=== PATIENT | male | born 1995 | race Caucasian/White ===

== ENCOUNTER 2019-07-27 17:36 | Emergency (ER) | payer OTHER, SELFPAY ==
[2019-07-27 18:14] VITALS: BP 142/109; PULSE 112; RESP 18; TEMP 36.6; O2SAT 98
--- NOTE | 2019-07-27 18:50 | ED.ABDPAIN ---
HPI - Abdominal Pain General Chief Complaint: Skin/Abscess/Foreign Body Stated Complaint: tailbone pain, redness Time Seen by Provider: 07/27/19 18:04 Source: patient Mode of arrival: ambulatory Limitations: no limitations History of Present Illness HPI narrative: Patient is a 24-year-old male who presents with red tender area to the buttock that is been present for the last day pain is a mild aching pain worse with sitting also noting some redness patient denies any fever chills nausea vomiting presents per private vehicle in no distress. Related Data Home Medications Medication Instructions Recorded Confirmed insulin lispro [Humalog U-100 07/27/19 Insulin] Allergies Allergy/AdvReac Type Severity Reaction Status Date / Time No Known Allergies Allergy Verified 07/27/19 18:19 Review of Systems Review of Systems: Narrative: CONSTITUTIONAL: Denies fever, chills, or sweats. GASTROINTESTINAL: Denies nausea, vomiting SKIN: Positive for buttock wound MUSCULOSKELETAL: Denies back pain, joint pain PMFSH Past Medical History Medical History Diabetes type I STD (male) Surgical History Surgical History No significant past surgical history Social History Social History Smoking status: Never smoker Alcohol intake: current Gender identity (if verbalized by the patient): Male Exam Narrative: Exam Narrative: GENERAL: Well-appearing, well-nourished, and in no acute distress. HEAD: Normocephalic, atraumatic. EYES: PERRLA and EOMI. ENT: Nares clear, no rhinorrhea or epistaxis. Mucous membranes moist. EXTREMITIES: Normal range of motion. No edema. SKIN: Patient with red tender swollen area in the gluteal cleft consistent with pilonidal abscess NEURO: No focal deficits. Alert and oriented x3. PSYCH: Normal mood and affect. Procedures Abscess I/D buttock: Date of Incision: 07/27/19 Time of Incision: 18:55 Technique: incised with #11 blade Irrigation: No Packing used?: iodoform I&D Results: Pus and Blood Course Course Emergency Course: Patient in the room in no distress aware of case findings treatment plan and diagnosis Vital Signs Vital signs: Vital Signs Temperature 98 F 07/27/19 18:14 Pulse Rate 112 H 07/27/19 18:14 Respiratory Rate 18 07/27/19 18:14 Blood Pressure 142/109 H 07/27/19 18:14 Pulse Oximetry 98 07/27/19 18:14 Temperature 98 F 07/27/19 18:14 Pulse Rate 112 H 07/27/19 18:14 Respiratory Rate 18 07/27/19 18:14 Blood Pressure 142/109 H 07/27/19 18:14 Pulse Oximetry 98 07/27/19 18:14 MDM - Abdominal Pain MDM Narrative Medical decision making narrative: Patient in the room in no distress aware of case findings treatment plan and diagnosis agreeing to follow-up as directed Discharge Plan Discharge Clinical Impression: Abscess of skin or subcutaneous tissue Patient Disposition: Home, Self-Care Condition: Stable Instructions: Antibiotic Form, Abscess (ED) Additional Instructions: Follow up with primary care in the next 5-7 days for re-evaluation take antibiotics as directed. return if symptoms worsen or concerns, any increase in redness swelling pain or fever over 100.5 Clean wound with mild soapy water. Apply antibiotic ointment and clean dressing at least three times daily Prescriptions: New cephalexin [Keflex] 500 mg capsule 500 mg PO Q6H 7 Days Qty: 28 RF: 0 No Action Humalog U-100 Insulin 100 unit/mL cartridge RF: 0 Follow-up/Referrals: Anil,CHRISTIE Castro [Primary Care Provider] -
== END 2019-07-27 19:13 | disposition home or self-care (01) ==
PROVIDERS: Emergency Provider Emergency Medicine; PCP Physician Assistant
DX: L02.31 Cutaneous abscess of buttock (principal); E10.9 Type 1 diabetes mellitus without complications; Z79.4 Long term (current) use of insulin
CPT/HCPCS: 10061; 99283

== ENCOUNTER 2020-07-12 20:10 | Emergency (ER) | payer OTHER, SELFPAY ==
[2020-07-12 20:15] VITALS: BP 149/87; PULSE 106; RESP 20; TEMP 37; O2SAT 100
--- NOTE | 2020-07-12 20:30 | ED.GENADULT ---
HPI - General Adult General Chief complaint: Skin/Abscess/Foreign Body Stated complaint: bump below belt line Time Seen by Provider: 07/12/20 20:30 Source: patient Mode of arrival: ambulatory Limitations: no limitations History of Present Illness HPI narrative: Patient is a 25-year-old male who presents with red tender swollen area in the suprapubic region along the belt line for the last several days having had infections in this location before patient denies fever chills nausea vomiting patient notes his blood sugars have been well controlled and is a diabetic patient is followed by primary care presents in no distress has no other complaints Related Data Home Medications Medication Instructions Recorded Confirmed insulin lispro [Humalog U-100 07/27/19 Insulin] Allergies Allergy/AdvReac Type Severity Reaction Status Date / Time No Known Allergies Allergy Verified 07/12/20 20:17 Review of Systems Review of Systems: All systems reviewed & are unremarkable except as noted in HPI and below PMFSH Past Medical History Medical History Diabetes type I STD (male) Surgical History Surgical History No significant past surgical history Social History Social History Smoking status: Never smoker Alcohol intake: current Gender identity (if verbalized by the patient): Male Exam Narrative: Exam Narrative: GENERAL: Well-appearing, well-nourished, and in no acute distress. HEAD: Normocephalic, atraumatic. EYES: PERRLA and EOMI. ENT: Nares clear, no rhinorrhea or epistaxis. Mucous membranes moist. EXTREMITIES: Normal range of motion. No edema. SKIN: Warm, dry, no rash. 2 cm red tender swollen fluctuant lesion mid suprapubic region NEURO: No focal deficits. Alert and oriented x3. Cranial nerves II through XII grossly intact PSYCH: Normal mood and affect. Course Course Emergency Course: Patient with I&D in the emergency department had wound culture obtained will be discharged home with follow-up with primary care given reasons to return Vital Signs Vital signs: Vital Signs Temperature 98.6 F 07/12/20 20:15 Pulse Rate 106 H 07/12/20 20:15 Respiratory Rate 07/12/20 20:15 Blood Pressure 149/87 H 07/12/20 20:15 Pulse Oximetry 100 07/12/20 20:15 Temperature 98.6 F 07/12/20 20:15 Pulse Rate 106 H 07/12/20 20:15 Respiratory Rate 20 07/12/20 20:15 Blood Pressure 149/87 H 07/12/20 20:15 Pulse Oximetry 100 07/12/20 20:15 Procedures Abscess I/D abdomen: Date of Incision: 07/12/20 Time of Incision: 20:32 Technique: incised with #11 blade Irrigation: No Packing used?: iodoform I&D Results: Pus and Blood Complications: pain Medical Decision Making MDM Narrative Medical decision making narrative: Patient had I&D of abscess will be discharged home with outpatient follow-up Vital Signs Vital Signs: Vital Signs Temperature 98.6 F 07/12/20 20:15 Pulse Rate 106 H 07/12/20 20:15 Respiratory Rate 20 07/12/20 20:15 Blood Pressure 149/87 H 07/12/20 20:15 Pulse Oximetry 100 07/12/20 20:15 Temperature 98.6 F 07/12/20 20:15 Pulse Rate 106 H 07/12/20 20:15 Respiratory Rate 20 07/12/20 20:15 Blood Pressure 149/87 H 07/12/20 20:15 Pulse Oximetry 100 07/12/20 20:15 Discharge Plan Discharge Clinical Impression: Abscess of skin or subcutaneous tissue Patient Disposition: Home, Self-Care Condition: Stable Instructions: Antibiotic Form, Abscess (ED) Additional Instructions: Follow up with primary care in the next 2-3 days for re-evaluation and packing removal if placed take antibiotics as directed. return if symptoms worsen or concerns, any increase in redness swelling pain or fever over 100.5 If packing was placed it must
== END 2020-07-12 20:40 | disposition home or self-care (01) ==
LOC: ANHED 20:44
PROVIDERS: Emergency Provider Emergency Medicine; PCP Physician Assistant
DX: L02.211 Cutaneous abscess of abdominal wall (principal); E10.9 Type 1 diabetes mellitus without complications; Z79.4 Long term (current) use of insulin
CPT/HCPCS: 10061; 87070; 87075; 87205; 99283

== ENCOUNTER 2021-04-08 17:24 | Inpatient (IN) | payer OTHER, SELFPAY ==
--- NOTE | ~2021-04-08 | NM_ITS ---
EXAM: NM gastric emptying study DATE: 04/11/2021 12:26 INDICATION: Shortness of breath. Diabetes mellitus. TECHNIQUE: A gastric emptying study was performed using the methodology of Yessica HERNANDEZ, et al. J Nucl Med 2007; 48:568-572. The patient was given a meal consisting of 2 scrambled eggs labeled with 0.972 mCi Tc-99m sulfur colloid, 2 slices of toast, two packages of jam, and approximately 120 mL of water . Simultaneous anterior and posterior 1-min images of the abdomen were obtained with the patient supi ne at multiple time points over a total period of 4 hours. The geometric mean of anterior and posteri or views was determined, and the percentage retention was calculated for each time point. COMPARISON: None. FINDINGS: Gastric retention of the radiotracer-labeled meal was 83%, 77%, and 39% at the 1-hour, 2-h our, and 4-hour time points, respectively. With this technique, apparent rapid gastric emptying is calderón ggested by <30% gastric retention at 1 hour. Delayed gastric emptying is defined by gastric retention of >90% at 1 hour, >60% retention at 2 hours, or >10% retention at 4 hours. IMPRESSION: 1. Delayed gastric emptying. Reviewed, dictated and finalized at location A. NG MACHINE REPAIRER
--- NOTE | ~2021-04-08 | XR_ITS ---
EXAMINATION: XR chest 1V portable DATE: 04/08/2021 17:59 INDICATION: Shortness of breath TECHNIQUE: frontal view of the chest was obtained. COMPARISON: Chest radiograph dated 02/04/16 FINDINGS: The lungs remain clear with no focal airspace opacities, pulmonary edema, pleural effusion or pneumot horax. The cardiomediastinal silhouette is normal. Visualized bones and soft tissues are unremarkable . IMPRESSION: 1. No acute cardiopulmonary disease. Reviewed, dictated and finalized at location A. E MAKER
[2021-04-08 17:32] VITALS: BP 135/89; PULSE 130; RESP 20; TEMP 36.6; O2SAT 99
[2021-04-08 17:41] VITALS: BP 135/89; PULSE 130; RESP 19; TEMP 36.6
--- NOTE | 2021-04-08 17:51 | ECG_ITS ---
Measurements Intervals [place] Rate: 128 P: 70 OK: 146 QRS: 60 QRSD: 88 T: 53 QT: 296 QTc: 433 Interpretive Statements SINUS TACHYCARDIA PEAKED T WAVES- CONSIDER HYPERKALEMIA OR ISCHEMIA ABNORMAL ECG Electronically Signed On 04-08-2021 20:34:29 LIME PLANT OPERATOR by aPul Villegas D.O.
--- NOTE | 2021-04-08 18:08 | ED.GENADULT ---
HPI - General Adult General Chief complaint: Weakness Stated complaint: WEAK, SOB, CP, N/V Time Seen by Provider: 04/08/21 17:29 Source: patient History of Present Illness HPI narrative: Patient is a 26 y/o male complaining of moderate generalized weakness starting today. There is no known alleviating or exacerbating factor. He also vomited 3 times. He has SOB. He has no fever or abdominal pain. Related Data Home Medications Medication Instructions Recorded Confirmed insulin lispro [Humalog U-100 07/27/19 Insulin] Allergies Allergy/AdvReac Type Severity Reaction Status Date / Time No Known Allergies Allergy Verified 07/12/20 20:17 Review of Systems Constitutional: Constitutional: Denies chills, Denies fever(s), Denies headache(s) and Reports weakness Eyes: Eyes: Denies blurry vision ENT: Denies headache(s) and Denies neck pain Cardiovascular: Cardiovascular: Denies chest pain and Reports dyspnea Respiratory: Respiratory: Denies cough and Reports dyspnea Gastrointestinal: Gastrointestinal: Denies abdominal pain, Denies diarrhea, Reports nausea and Reports vomiting Genitourinary: Genitourinary: Denies hematuria and Denies dysuria Musculoskeletal: Musculoskeletal: Denies back pain and Denies neck pain Neurologic: Denies headache(s) and Denies weakness PMFSH Past Medical History Medical History Diabetes type I STD (male) Surgical History Surgical History No significant past surgical history Social History Social History Smoking status: Never smoker Alcohol intake: current Gender identity (if verbalized by the patient): Male Exam Const: General: well developed and ill appearing Orientation/consciousness: oriented to person, oriented to place, oriented to time and patient oriented x3 HENMT: Head: normocephalic Ears: external ears normal General nose exam: Normal external nose present Eyes: General: appearance normal, both eyes and all related structures Conjunctivae: conjunctivae normal Neck: Neck: normal visual inspection and full ROM Chest: Chest palpation & inspection: normal inspection of the chest and no tenderness Resp: Effort & Inspection: normal respiratory effort Auscultation: clear to auscultation bilaterally Cardio: Rate: tachycardic Rhythm: regular rhythm GI: GI Palp: No abdominal tenderness and Yes Soft to palpation Skin: General skin exam: normal color and turgor normal Neuro: General: oriented to person, oriented to place, oriented to time and patient oriented x3 Cognition (Neuro): normal cognition Extrem: General: normal to inspection, full ROM and no pedal edema Psych: Appearance: grossly normal Mental Status: mental status grossly normal Affect: normal affect Course Consultations Consultation #1: Discussed with CARL Butler, who agrees to admit. Date: 04/08/21 Time: 19:14 Consultation #2: Discussed with Dr. Martinez, who agrees to accept the patient to ICU and will consult. Date: 04/08/21 Time: 19:18 Vital Signs Vital signs: Vital Signs Temperature 36.6 C 04/08/21 17:32 Pulse Rate 130 H 04/08/21 17:32 Respiratory Rate 20 04/08/21 17:32 Blood Pressure 135/89 04/08/21 17:32 Pulse Oximetry 99 04/08/21 17:32 Temperature 36.6 C 04/08/21 17:41 Pulse Rate 131 H 04/08/21 20:06 Respiratory Rate 22 H 04/08/21 20:06 Blood Pressure 158/79 H 04/08/21 20:06 Pulse Oximetry 97 04/08/21 20:06 Medical Decision Making Vital Signs Vital Signs: Vital Signs Temperature 36.6 C 04/08/21 17:32 Pulse Rate 130 H 04/08/21 17:32 Respiratory Rate 20 04/08/21 17:32 Blood Pressure 135/89 04/08/21 17:32 Pulse Oximetry 99 04/08/21 17:32 Temperature 36.6 C 04/08/21 17:41 Pulse Rate 131 H 04/08/21 20:06 Respiratory Rate 22 H 04/08/21 20:06 Blood Pressure 1
[2021-04-08 18:11] LABS: Alveolar/Arterial O2 Gradient 57.3 mmHg; Base Excess ABG -20.8 mEq/l (+/-2.0); Fractional Inspired Oxygen 28 %; HCO3 ABG 5.2 mEq/l (22.0-26.0); Oxygen Content ABG 24.5 %vol (16.0-22.0); Oxygen Saturation ABG 97.6 % (95.0-100.0); Oxyhemoglobin 96.8 % THb (90.0-100.0); PO2 ABG 124.4 mmHg (80.0-100.0); PO2 FiO2 Ratio Arterial Blood 4.44 %; Total Hemoglobin 17.9 g/dL (12.0-18.0); pH ABG 7.155 (7.350-7.450)
[2021-04-08 18:12] LABS: Device NASAL CANNULA; Modified Allen's Test Pass; PCO2 ABG 15.2 mmHg (35.0-45.0); Site Drawn LEFT RADIAL
[2021-04-08 18:32] LABS: Glucose Point of Care 392 mg/dl (65-105)
[2021-04-08 18:37] LABS: Basophils Absolute Auto 0.1 K/mm3 (0.0-0.1); Basophils Percent Auto 0.5 % (0.2-1.2); Hematocrit 54.2 % (42.0-52.0); Hemoglobin 17.8 g/dL (14.0-18.0); Immature Granulocyte Absolute 0.64 K/mm3 (0.00-0.031); Immature Granulocyte Percent A 2.9 % (0-0.5); Lymphocytes Percent Auto 6.4 % (18.3-44.2); Mean Corpuscular HGB Conc 32.8 g/dl (32-36); Mean Corpuscular Hemoglobin 29.9 pg (26-34); Mean Corpuscular Volume 90.9 fl (80-100); Mean Platelet Volume 9.7 fl (7.4-10.4); Monocytes Absolute Auto 1.2 K/mm3 (0.1-0.6); Monocytes Percent Auto 5.6 % (2.6-8.5); Neutrophils Absolute Auto 18.7 K/mm3 (1.3-6.7); Neutrophils Percent Auto 84.6 % (45.5-73.1); Platelet Count Result 503 k/mm3 (150-375); Red Blood Count 5.96 M/mm3 (4.6-6.20); Red Cell Distribution Width 13.4 % (11.5-14.5)
[2021-04-08] MEDS: SODIUM CHLORIDE 0.9% IV 1,000 ML 999 ML IV CONT (18:47)
[2021-04-08 18:55] LABS: Magnesium 2.1 mg/dL (1.6-2.3); Phosphorus 5.3 mg/dL (2.5-4.5)
[2021-04-08 18:57] LABS: Alanine Aminotransferase 43 U/L (4-50); Albumin Level 5.2 g/dL (3.5-5.1); Alkaline Phosphatase 137 U/L (38-126); Aspartate Amino Transferase 20 U/L (17-59); Bilirubin,Total 0.6 mg/dL (0.2-1.3); Blood Urea Nitrogen 13 mg/dL (9-20); Calcium 10.3 mg/dL (8.4-10.2); Carbon Dioxide < 5 mmol/L (22-30); Chloride 106 mmol/L (98-107); Estimated CRCL calculation 116 ml/min; Estimated Glomerular Filt Rate > 60; Glucose 372 mg/dL (65-110); Potassium 6.3 mmol/L (3.4-5.0); Sodium 139 mmol/L (137-145)
[2021-04-08 19:01] LABS: Troponin I < 0.012 ng/mL (0.000-0.034)
--- NOTE | 2021-04-08 19:30 | PM.IMHP ---
H&P: HPI History of Present Illness Date/Time: 04/08/21 19:30 Chief Complaint: Nausea, vomiting, and weakness. Narrative: This is a 21-year-old male with type 1 diabetes mellitus and history of diabetic ketoacidosis who presented to the emergency department earlier today via EMS for evaluation of nausea, vomiting, and weakness. He did not feel well shortly after waking this morning with mild epigastric discomfort, nausea, and multiple episodes of emesis. Since that time he has gotten extremely weak and is now feeling short of breath. In the emergency department he was found to be in diabetic ketoacidosis and he is being admitted in this setting. With further questioning he does mention that his glucose has been running quite high today however he cannot further qualify. He states compliance with his home medications. He has not had fever, chills, or sweats. No recent cold or flu symptoms. He denies sick contacts. He also denies hematemesis and melena. No dysuria or diarrhea. No open wounds. Of note he was admitted to [facility] a couple of weeks ago for nearly 7 days for DKA. Review of Systems Review of Systems: Twelve systems were reviewed. He denies syncope and near-syncope. No sinus congestion, rhinorrhea, otalgia, or odynophagia. He denies chest pain and pleuritic pain. No cough. He has noticed a decrease in his urine output today. Denies nephropathy, retinopathy, and neuropathy. Except as documented, all other systems were reviewed and are negative. [facility] Past Medical History Medical History (Updated 04/08/21 @ 23:21 by Carrie Reyes PA-C) Type 1 diabetes mellitus Surgical History Surgical History No significant past surgical history Family History Family History (Updated 04/08/21 @ 23:17 by Carrie Reyes PA-C) Other Diabetes mellitus Hypertension Social History Social History (Updated 04/08/21 @ 23:17 by Carrie Reyes PA-C) Social History: Surrogate decision maker: Ophelia Nash, mother. Code status: Full code. Smoking status: Never smoker Alcohol intake: current Alcohol use details: Drinks alcohol socially in moderation. Substance use: never Additional living arrangements comments: The patient lives in [place] with roommates. Additional occupation/education comments: Works for [employer]. Meds Home Medications and Allergies Home Medications Medication Instructions Recorded Confirmed Type cephalexin [Keflex] 500 mg PO Q6H 7 Days #28 cap 07/27/19 Rx insulin lispro [Humalog U-100 07/27/19 History Insulin] chlorhexidine gluconate [Hibiclens] 1 applic TOPICAL TID #3800 ml 07/12/20 Rx doxycycline hyclate 100 mg PO BID 10 Days #20 cap 07/12/20 Rx mupirocin 1 applic TOPICAL BID #15 g 07/12/20 Rx Allergies Allergy/AdvReac Type Severity Reaction Status Date / Time No Known Allergies Allergy Verified 07/12/20 20:17 Vital Signs Vital Signs - 24 hr 04/08/21 17:32 04/08/21 17:41 04/08/21 20:06 Temperature 98 F 98 F Pulse Rate 130 H 130 H 131 H Respiratory Rate 20 19 22 H Blood Pressure 135/89 135/89 158/79 H Pulse Oximetry 99 97 Exam Narrative: General: Ill-appearing male in the semi-Garcia position in bed. He vomited several times while I was in the room. Weight: 97.52 kg. BMI: 30.8. HEENT: PERRL, EOMI. Sclerae anicteric. Oral mucosa is dry. Oropharynx is clear. Respiratory: Tachypneic and speaking in 4 to 5 word sentences. Lungs are clear to auscultation. Cardiovascular: Tachycardic with S1-S2. Gastrointestinal: Abdomen is soft and nondistended with positive bowel sounds. He is somewhat tender to palpation epigastric region but not significantly so. No voluntary guarding or rebound tenderness. There is some bruising in the right lower quadrant presumably from insulin pump. Skin: Cool and moist. Capillary refill approximately 3 seconds. Extremities: No cyanosis, clu
--- NOTE | 2021-04-08 19:32 | PC.NURSE ---
Took over pt care at this time. Report from ECTOR Barba
[2021-04-08 20:04] LABS: Glucose Point of Care 348 mg/dl (65-105)
[2021-04-08 20:06] VITALS: BP 158/79; PULSE 131; RESP 22; O2SAT 97
[2021-04-08 21:12] LABS: Glucose Point of Care 347 mg/dl (65-105)
[2021-04-08 21:46] LABS: Troponin I < 0.012 ng/mL (0.000-0.034)
[2021-04-08] MEDS: INSULIN HUMAN REGULAR (*BKC) 100 UNITS in SODIUM CHLORIDE 0.9% IV 99 ML 5.7 UNITS IV CONT (22:20)
[2021-04-08] MEDS: ONDANSETRON INJ 4 MG/2 ML VIAL (22:45)
[2021-04-08 23:03] LABS: Glucose Point of Care 310 mg/dl (65-105)
[2021-04-08 23:30] VITALS: BP 148/84; PULSE 128
[2021-04-08 23:37] LABS: Glucose Point of Care 301 mg/dl (65-105)
[2021-04-09] VITALS (11 sets, daily range): BP systolic 125–146; BP diastolic 64–86; PULSE 114–130; RESP 16–23; TEMP 36.7–37.1; O2SAT 98–100; BMI 30.7; BMI 28.9
[2021-04-09] MEDS: SODIUM CHLORIDE 0.9% IV 1,000 ML 999 ML IV CONT ×2 (00:02→01:00)
[2021-04-09 00:10] LABS: Hemoglobin A1C 10.7 % (<5.7)
--- NOTE | 2021-04-09 00:11 | ADMGEN ---
This patient, César Nash, was admitted to Intensive Care Unit-1. Patient/family oriented to hospital policies and general routines including ID bracelet, bed and alarms, visiting hours, pain management, procedures, bathroom and other care routines, personal items, smoking policy, room service/diet, and visiting hours. Information on how to activate the Rapid Response Team has been discussed. Patient/Family are encouraged to report perceived risks to care and to ask questions if they do not understand what they are told or what they should do.
[2021-04-09 00:16] LABS: Blood Urea Nitrogen 12 mg/dL (9-20); Carbon Dioxide < 5 mmol/L (22-30); Chloride 110 mmol/L (98-107); Estimated CRCL calculation 161 ml/min; Estimated Glomerular Filt Rate > 60; Glucose 314 mg/dL (65-110); Magnesium 2.2 mg/dL (1.6-2.3); Phosphorus 3.3 mg/dL (2.5-4.5); Potassium 4.9 mmol/L (3.4-5.0); Sodium 141 mmol/L (137-145)
[2021-04-09 00:17] LABS: Blood Urea Nitrogen 12 mg/dL (9-20); Calcium 10.2 mg/dL (8.4-10.2); Carbon Dioxide < 5 mmol/L (22-30); Chloride 111 mmol/L (98-107); Estimated CRCL calculation 142 ml/min; Estimated Glomerular Filt Rate > 60; Glucose 316 mg/dL (65-110); Sodium 142 mmol/L (137-145)
[2021-04-09 00:27] LABS: Troponin I < 0.012 ng/mL (0.000-0.034)
[2021-04-09 01:16] LABS: Glucose Point of Care 228 mg/dl (65-105)
[2021-04-09] MEDS: KCL 20 MEQ/D5/0.45% SOD CHL 1,000 ML 150 ML IV CONT ×2 (02:02→08:49)
[2021-04-09 02:08] LABS: Glucose Point of Care 201 mg/dl (65-105)
[2021-04-09 03:11] LABS: Glucose Point of Care 199 mg/dl (65-105)
[2021-04-09 04:15] LABS: Glucose Point of Care 212 mg/dl (65-105)
[2021-04-09 05:37] LABS: Anion Gap 16 mmol/L (8-16); Blood Urea Nitrogen 11 mg/dL (9-20); Calcium 9.5 mg/dL (8.4-10.2); Carbon Dioxide 12 mmol/L (22-30); Chloride 114 mmol/L (98-107); Estimated CRCL calculation 185 ml/min; Estimated Glomerular Filt Rate > 60; Glucose 230 mg/dL (65-110); Potassium 4.2 mmol/L (3.4-5.0); Sodium 142 mmol/L (137-145)
[2021-04-09 05:38] LABS: Glucose Point of Care 216 mg/dl (65-105)
[2021-04-09 06:04] LABS: Add Urine Microscopic? YES; Appearance Urine Clear (Clear); Bilirubin Urine Negative (Negative); Blood Urine Negative (Negative); Color Urine Yellow (Yellow); Glucose Urine UA 3+ mg/dL (Negative); Ketones Urine 2+ mg/dL (Negative); Leukocyte Esterase Ur Negative LEU/UL (NEGATIVE); Mucus Urine Rare /lpf; Nitrate Urine Negative (Negative); Protein Urine 2+ mg/dL (Negative); RBC Urine 0-2 /hpf (0-2); Specific Grav Ur 1.018 (1.001-1.035); Squamous Epithelial Cell Urine Rare /hpf (Few); Urobilinogen Urine Negative mg/dL (<2.0); WBC Urine 0-3 /hpf (0-3)
[2021-04-09 06:38] LABS: Glucose Point of Care 184 mg/dl (65-105)
[2021-04-09] MEDS: PANTOPRAZOLE SODIUM IV 40 MG VIAL IV PUSH ×2 (07:50→20:25)
[2021-04-09] MEDS: ENOXAPARIN 40 MG/0.4 ML SYRINGE SUB-Q (07:50)
[2021-04-09] MEDS: INSULIN HUMAN REGULAR (*BKC) 100 UNITS in SODIUM CHLORIDE 0.9% IV 99 ML 8.2 UNITS IV CONT (07:54)
[2021-04-09 07:57] LABS: Glucose Point of Care 151 mg/dl (65-105)
[2021-04-09 08:32] LABS: Anion Gap 12 mmol/L (8-16); Blood Urea Nitrogen 11 mg/dL (9-20); Calcium 9.5 mg/dL (8.4-10.2); Carbon Dioxide 14 mmol/L (22-30); Chloride 112 mmol/L (98-107); Estimated CRCL calculation 193 ml/min; Estimated Glomerular Filt Rate > 60; Glucose 150 mg/dL (65-110); Potassium 3.9 mmol/L (3.4-5.0); Sodium 138 mmol/L (137-145)
[2021-04-09 08:48] LABS: Basophils Percent Auto 0.2 % (0.2-1.2); Eosinophils Percent Auto 0.1 % (0-4.4); Hematocrit 45.6 % (42.0-52.0); Hemoglobin 15.4 g/dL (14.0-18.0); Immature Granulocyte Absolute 0.22 K/mm3 (0.00-0.031); Immature Granulocyte Percent A 1.4 % (0-0.5); Lymphocytes Absolute Auto 2.58 K/mm3 (0.9-3.2); Mean Corpuscular HGB Conc 33.8 g/dl (32-36); Mean Corpuscular Volume 88.7 fl (80-100); Mean Platelet Volume 9.4 fl (7.4-10.4); Monocytes Absolute Auto 1.9 K/mm3 (0.1-0.6); Monocytes Percent Auto 11.9 % (2.6-8.5); Neutrophils Absolute Auto 11.4 K/mm3 (1.3-6.7); Neutrophils Percent Auto 70.4 % (45.5-73.1); Platelet Count Result 395 k/mm3 (150-375); Red Blood Count 5.14 M/mm3 (4.6-6.20); Red Cell Distribution Width 13.4 % (11.5-14.5); White Blood Count 16.1 K/mm3 (4.5-10.0)
[2021-04-09 08:52] LABS: Glucose Point of Care 127 mg/dl (65-105)
--- NOTE | 2021-04-09 10:20 | PM.IMPN ---
Progress Note: A&P Assessment and Plan (1) Diabetic ketoacidosis associated with type 1 diabetes mellitus: Code(s): E10.10 - Type 1 diabetes mellitus with ketoacidosis without coma Status: Acute Assessment and Plan: With hyperglycemia (glucose 372), ketonemia (beta hydroxybutyrate 10.30), and metabolic acidosis with a pH of 7.155 and a pCO2 of 15.2 on ABG. Anion gap was unable to be calculated accurately but at least 28. He was admitted to the ICU on DKA protocol. Continue insulin drip and IV fluids per DKA protocol. Anion gap has closed now. Plan to transition to basal insulin and meal time bolus dosing. agricultural extension educator consult. Unclear on why he is back in DKA. Discussed with bun icer. (2) Type 1 diabetes mellitus: Code(s): E10.9 - Type 1 diabetes mellitus without complications Status: Acute Assessment and Plan: A1c 10.7. Plan is as detailed above. (3) Hyperkalemia: Code(s): E87.5 - Hyperkalemia Status: Acute Assessment and Plan: Potassium 6.3 on admission. Related to DKA and profound acidosis. EKG does show peaked T-waves. There have been no cardiac dysrhythmias noted and he has been in a sinus tachycardia since arrival. Potassium has normalized with aggressive hydration and insulin drip. Continue to monitor. (4) Dehydration: Code(s): E86.0 - Dehydration Status: Acute Assessment and Plan: He is being aggressively hydrated per DKA protocol. Still tachycardic despite closure of anion gap. Continue IV fluids since suspect patient is still fluid depleted. (5) Depression: Code(s): F32.A - Depression, unspecified Status: Acute Assessment and Plan: Normal mood but flat affect. Resume sertraline. Continue to monitor. (6) Leukocytosis: Code(s): D72.829 - Elevated white blood cell count, unspecified Status: Acute Assessment and Plan: WBC 22K on admission. No evidence of acute infectious process so suspect related to a stress response. CXR clear. UA negative for evidence of infection. Blood cultures pending. Abx held. Repeat WBC better. Follow. (7) DVT prophylaxis: Code(s): Z29.9 - Encounter for prophylactic measures, unspecified Status: Acute Assessment and Plan: Lovenox Subjective Date/time seen: 04/09/21 10:20 Interval history: 26yo male with DM Type I here for n/v and found to be in DKA. Patient was just discharged for DKA on 04/02 from a different hospital. He is not sure why he developed DKA again but feels that his original DKA episode did not completely resolve. Currently on insulin drip but gap closed. Slept okay last night. Checks glucose 4x/day at home. Pump working well at home. n/v resolved. Exam Narrative: AF 98.1 131/72 114 16 100% ra Gen - NARD Chest - CTA bilaterally, nml RR CV - tachycardic; Tele showing no acute dysrhythmias Abd - Soft, NT/ND, Positive BS Ext - No pedal edema. no skin breakdown on the feet. 2+ DP bilaterally Neuro - Alert and oriented. Nonfocal exam. Psych - Nml mood but flat affect Objective Data Vital Signs Vital Signs: Vital Signs - 24 hr 04/08/21 17:32 04/08/21 17:41 04/08/21 20:06 Temperature 98 F 98 F Pulse Rate 130 H 130 H 131 H Respiratory Rate 20 19 22 H Blood Pressure 135/89 135/89 158/79 H Pulse Oximetry 99 97 04/08/21 23:30 04/09/21 00:00 04/09/21 02:00 Temperature Pulse Rate 128 H 130 H 124 H Respiratory Rate 20 19 Blood Pressure 148/84 H 126/80 135/82 Pulse Oximetry 100 100 04/09/21 03:24 04/09/21 04:00 04/09/21 06:00 Temperature 98.3 F Pulse Rate 124 H 116 H 118 H Respiratory Rate 19 19 18 Blood Pressure 125/69 137/73 Pulse Oximetry 100 100 100 04/09/21 08:00 04/09/21 09:11 Temperature 98.1 F Pulse Rate 114 H Respiratory Rate 16 Blood Pressure 131/72 Pulse Oximetry 100 100 Intake/Output Intake/Output: Intake & Output 04/06/21 04/07/21
[2021-04-09] MEDS: INSULIN GLARGINE (*BKC) 100 UNITS/ML 30 UNITS SUB-Q (10:27)
[2021-04-09] MEDS: SODIUM CHLORIDE 0.45% 1,000 ML 75 ML IV CONT ×2 (10:28→20:29)
--- NOTE | 2021-04-09 10:28 | WPDCNINT ---
Assessment and Plan Assessment and plan (1) Diabetic ketoacidosis associated with type 1 diabetes mellitus: Code(s): E10.10 - Type 1 diabetes mellitus with ketoacidosis without coma Status: Acute Assessment and Plan: Patient was given IVF bolus and started on infusion. Patient currently on Insulin infusion and Q1H glucose monitoring Serial labs are being done I have reviewed lab this morning and his anion gap has closed. His symptoms have improved I will transition to SC insulin Start clear liquid diet and advance as tolerated Continue IV fluids but decrease rate. Will continue until patient starts taking oral diet He will be seen by museum educator his HbA1c is 10.7 which suggest either noncompliance or poor control (2) Leukocytosis: Code(s): D72.829 - Elevated white blood cell count, unspecified Status: Acute Assessment and Plan: Likely stress response from DKA and improving No symptoms or sign to suggest of infection His UA and chest x-ray were negative (3) Hyperkalemia: Code(s): E87.5 - Hyperkalemia Status: Acute Assessment and Plan: Likely secondary to acidosis Resolved now Renal function is normal Additional Plan DVT prophylaxis -SCDs Transfer out of ICU today Invoice Control Clerk Consult Note Consult date: 04/09/21 HPI: César Nash is a 26 year old male with past medical history of type 1 diabetes mellitus and admissions for DKA who presented yesterday with chief complaint of nausea vomiting and feeling sick. Patient told me that yesterday when he woke up he was feeling sick and was nauseous. As the day passed he became more symptomatic and had episodes of vomiting but no blood in it. He felt weak and tired. Hence he presented to ER. In ED patient was found to be in DKA and was given IV fluid bolus and started on IV fluid infusion along with IV insulin infusion. He was admitted to ICU for further evaluation management. Patient denied any abdominal pain or shortness of breath to me although he reported these complaints to admitting physician. All other systems were reviewed and were negative. This morning he states he is feeling better and his symptoms have resolved. Denies any for nausea vomiting at this time. He states he would like to try some food. Patient states compliance with his insulin and states he uses insulin pump with a basal rate of 1.6 units/hour and takes a sliding scale with his meals which in general is 3 units with breakfast and 6-7 units with lunch and dinner. Any malfunctioning of pump or noncompliance with diet. Review of Systems Review of Systems: All systems reviewed & are unremarkable except as noted in HPI and below (HPI) [facility] Past Medical History Medical History Type 1 diabetes mellitus Surgical History Surgical History No significant past surgical history Family History Family History Other Diabetes mellitus Hypertension Social History Social History Social History: Surrogate decision maker: Ophelia Nash, mother. Code status: Full code. Smoking status: Never smoker Alcohol intake: never Alcohol use details: Drinks alcohol socially in moderation. Substance use: never Additional living arrangements comments: The patient lives in [place] with roommates. Additional occupation/education comments: Works for [employer]. Spiritual care concerns: No Meds Home Medications and Allergies Home Medications Medication Instructions Recorded Confirmed Type insulin lispro [Humalog U-100 See Rx Instructions .ROUTE .COMPLEX 07/27/19 04/08/21 History Insulin] sertraline 25 mg PO HS 04/08/21 04/08/21 History Allergies Allergy/AdvReac Type Severity Reaction Status Date / Time No Known Aller
[2021-04-09 10:33] LABS: Glucose Point of Care 119 mg/dl (65-105)
[2021-04-09 11:37] LABS: Glucose Point of Care 89 mg/dl (65-105)
[2021-04-09 12:06] LABS: Anion Gap 11 mmol/L (8-16); Blood Urea Nitrogen 10 mg/dL (9-20); Calcium 9.6 mg/dL (8.4-10.2); Carbon Dioxide 17 mmol/L (22-30); Chloride 110 mmol/L (98-107); Estimated CRCL calculation 193 ml/min; Estimated Glomerular Filt Rate > 60; Glucose 96 mg/dL (65-110); Potassium 3.7 mmol/L (3.4-5.0); Sodium 138 mmol/L (137-145)
[2021-04-09 13:32] LABS: Total Triiodothyronine (T3) 1.01 NG/ML (0.97-1.69)
[2021-04-09] MEDS: INSULIN ASPART (*BKC) 100 UNITS/ML SUB-Q ×2 (16:54→20:33)
[2021-04-09 16:58] LABS: Glucose Point of Care 241 mg/dl (65-105)
[2021-04-09] MEDS: SERTRALINE HCL 25 MG TABLET PO (20:25)
[2021-04-09 20:31] LABS: Glucose Point of Care 246 mg/dl (65-105)
[2021-04-10] VITALS: BP 129/74; PULSE 113; RESP 20; TEMP 37; O2SAT 99
[2021-04-10 04:26] VITALS: BP 114/79; PULSE 113; RESP 18; TEMP 36.5; O2SAT 100
--- NOTE | 2021-04-10 04:28 | PC.NURSE ---
This patient, César Nash, was transferred to [325-2 ] on 04/10/21 at 0428. Personal belongings sent with patient. Report given to [ Michelle BARNEY]. Appropriate documentation sent with patient.
--- NOTE | 2021-04-10 04:58 | PC.NURSE ---
Recieved from ICU to [facility]-2,call light in place.Aox3
[2021-04-10 06:31] LABS: Hemoglobin 13.9 g/dL (14.0-18.0); Mean Corpuscular HGB Conc 33.9 g/dl (32-36); Mean Corpuscular Volume 88.4 fl (80-100); Mean Platelet Volume 9.7 fl (7.4-10.4); Platelet Count Result 333 k/mm3 (150-375); Red Blood Count 4.64 M/mm3 (4.6-6.20); Red Cell Distribution Width 13.6 % (11.5-14.5); White Blood Count 10.2 K/mm3 (4.5-10.0)
[2021-04-10 06:36] LABS: Glucose Point of Care 308 mg/dl (65-105)
[2021-04-10] MEDS: INSULIN ASPART (*BKC) 100 UNITS/ML SUB-Q ×6 (06:40→21:46)
[2021-04-10 06:49] LABS: Albumin Level 3.5 g/dL (3.5-5.1); Anion Gap 19 mmol/L (8-16); Blood Urea Nitrogen 8 mg/dL (9-20); Calcium 9.2 mg/dL (8.4-10.2); Carbon Dioxide 10 mmol/L (22-30); Chloride 106 mmol/L (98-107); Estimated CRCL calculation 193 ml/min; Estimated Glomerular Filt Rate > 60; Glucose 305 mg/dL (65-110); Magnesium 1.6 mg/dL (1.6-2.3); Phosphorus 2.3 mg/dL (2.5-4.5); Potassium 3.9 mmol/L (3.4-5.0); Sodium 135 mmol/L (137-145)
[2021-04-10 08:21] LABS: Glucose Point of Care 259 mg/dl (65-105)
[2021-04-10 08:35] LABS: Glucose Point of Care 275 mg/dl (65-105)
[2021-04-10] MEDS: INSULIN GLARGINE (*BKC) 100 UNITS/ML 30 UNITS SUB-Q (09:28)
[2021-04-10 09:30] VITALS: BMI 28.9
[2021-04-10] MEDS: ENOXAPARIN 40 MG/0.4 ML SYRINGE SUB-Q (09:34)
[2021-04-10] MEDS: SODIUM CHLORIDE 0.45% 1,000 ML 75 ML IV CONT ×2 (09:34→21:53)
[2021-04-10] MEDS: PANTOPRAZOLE SODIUM IV 40 MG VIAL IV PUSH ×2 (09:35→21:45)
[2021-04-10 10:02] LABS: Glucose Point of Care 284 mg/dl (65-105)
[2021-04-10 12:02] LABS: Glucose Point of Care 247 mg/dl (65-105)
[2021-04-10 12:34] LABS: Anion Gap 15 mmol/L (8-16); Blood Urea Nitrogen 8 mg/dL (9-20); Calcium 8.9 mg/dL (8.4-10.2); Carbon Dioxide 14 mmol/L (22-30); Chloride 102 mmol/L (98-107); Estimated CRCL calculation 193 ml/min; Estimated Glomerular Filt Rate > 60; Glucose 256 mg/dL (65-110); Potassium 3.6 mmol/L (3.4-5.0); Sodium 131 mmol/L (137-145)
[2021-04-10 14:19] LABS: Glucose Point of Care 202 mg/dl (65-105)
[2021-04-10 14:44] VITALS: BP 136/76; PULSE 68; RESP 19; TEMP 37.3; O2SAT 100
[2021-04-10 17:10] LABS: Glucose Point of Care 215 mg/dl (65-105)
--- NOTE | 2021-04-10 17:12 | PM.IMPN ---
Progress Note: A&P Assessment and Plan (1) Diabetic ketoacidosis associated with type 1 diabetes mellitus: Code(s): E10.10 - Type 1 diabetes mellitus with ketoacidosis without coma Status: Acute Assessment and Plan: With hyperglycemia (glucose 372), ketonemia (beta hydroxybutyrate 10.30), and metabolic acidosis with a pH of 7.155 and a pCO2 of 15.2 on ABG. Anion gap was unable to be calculated accurately but at least 28. He was admitted to the ICU on DKA protocol treated with insulin drip and IV fluids per DKA protocol. Anion gap closed and transitioned to basal insulin and meal time bolus dosing. family educator consult. Today, he had AG 19 with serum bicarb 10. Will continue IV fluid and and monitor glucose more closely. His repeat showing serum bicarb 14 with AG 15 now. Contineu IV fluids. Continue to monitor closely. (2) Type 1 diabetes mellitus: Code(s): E10.9 - Type 1 diabetes mellitus without complications Status: Acute Assessment and Plan: A1c 10.7. He has his pump but not charged yet. Asked for him to charge pump so this can be resumed. He does have earlier satiety so will check GES. (3) Hyperkalemia: Code(s): E87.5 - Hyperkalemia Status: Acute Assessment and Plan: Potassium 6.3 on admission. Related to DKA and profound acidosis. EKG does show peaked T-waves. There have been no cardiac dysrhythmias noted and he has been in a sinus tachycardia since arrival. Potassium has normalized with aggressive hydration and insulin drip. Continue to monitor. (4) Dehydration: Code(s): E86.0 - Dehydration Status: Acute Assessment and Plan: He was aggressively hydrated per DKA protocol. Continue IV fluids as above. (5) Depression: Code(s): F32.A - Depression, unspecified Status: Acute Assessment and Plan: Normal mood and affect. Continue sertraline. Continue to monitor.w (6) Leukocytosis: Code(s): D72.829 - Elevated white blood cell count, unspecified Status: Acute Assessment and Plan: WBC 22K on admission. No evidence of acute infectious process so suspect related to a stress response. CXR clear. UA negative for evidence of infection. Blood cultures pending. Abx held. Repeat WBC almost normal. (7) DVT prophylaxis: Code(s): Z29.9 - Encounter for prophylactic measures, unspecified Status: Acute Assessment and Plan: Shantel Subjective Date/time seen: 04/10/21 17:12 Interval history: 26yo male with DM Type I here for n/v and found to be in DKA. Patient was just discharged for DKA on 04/02 from a different hospital. He feels better today. He complains of early satiety [facility] He speaks in a soft voice that happens at times but denies sore throat. +nausea. Eating okay. Exam Narrative: AF 99.1 136/76 68 19 100% ra Gen - NARD Chest - CTA bilaterally, nml RR CV - RRR S1/S2 Abd - Soft, NT/ND, Positive BS Ext - No pedal edema. Neuro - Alert and oriented. Nonfocal exam. Psych - Nml mood and more animated today. Objective Data Vital Signs Vital Signs: Vital Signs - 24 hr 04/09/21 20:00 04/10/21 00:00 04/10/21 04:26 Temperature 98.6 F 97.7 F Pulse Rate 118 H 113 H 113 H Respiratory Rate 17 20 18 Blood Pressure 129/74 114/79 Pulse Oximetry 99 99 100 04/10/21 14:44 Temperature 99.1 F Pulse Rate 68 Respiratory Rate 19 Blood Pressure 136/76 Pulse Oximetry 100 Intake/Output Intake/Output: Intake & Output 04/07/21 04/08/21 04/09/21 04/10/21 23:59 23:59 23:59 23:59 Intake Total 1000 5380 1480 Output Total 2500 Balance 1000 2880 1480 Meds/Results Medications: Active Medications Generic Name Dose Route Start Last Admin Trade Name Freq PRN Reason Stop Dose Admin Dextrose 12.5 gm 04/09/21 10:03 Dextrose 50% 25 Gm/50 Ml Syringe IV PUSH PRN PRN Hypoglycemia Protocol Mita
[2021-04-10 18:18] LABS: Anion Gap 16 mmol/L (8-16); Blood Urea Nitrogen 8 mg/dL (9-20); Calcium 8.7 mg/dL (8.4-10.2); Carbon Dioxide 14 mmol/L (22-30); Chloride 101 mmol/L (98-107); Estimated CRCL calculation 193 ml/min; Estimated Glomerular Filt Rate > 60; Glucose 230 mg/dL (65-110); Potassium 3.4 mmol/L (3.4-5.0); Sodium 131 mmol/L (137-145)
[2021-04-10] MEDS: SERTRALINE HCL 25 MG TABLET PO (21:45)
[2021-04-10 22:00] VITALS: BP 138/72; PULSE 100; RESP 18; TEMP 37.2; O2SAT 100
[2021-04-10 22:36] LABS: Glucose Point of Care 262 mg/dl (65-105)
[2021-04-11 06:00] VITALS: BP 125/66; PULSE 94; RESP 18; TEMP 36.5; O2SAT 100
[2021-04-11] MEDS: INSULIN ASPART (*BKC) 100 UNITS/ML SUB-Q ×3 (06:05→12:29)
[2021-04-11 06:11] LABS: Glucose Point of Care 231 mg/dl (65-105)
[2021-04-11 06:46] LABS: Hematocrit 39.9 % (42.0-52.0); Hemoglobin 13.5 g/dL (14.0-18.0); Mean Corpuscular HGB Conc 33.8 g/dl (32-36); Mean Corpuscular Hemoglobin 29.5 pg (26-34); Mean Corpuscular Volume 87.1 fl (80-100); Platelet Count Result 300 k/mm3 (150-375); Red Blood Count 4.58 M/mm3 (4.6-6.20); Red Cell Distribution Width 13.1 % (11.5-14.5); White Blood Count 6.1 K/mm3 (4.5-10.0)
[2021-04-11 07:09] LABS: Anion Gap 13 mmol/L (8-16); Blood Urea Nitrogen 9 mg/dL (9-20); Calcium 9.3 mg/dL (8.4-10.2); Carbon Dioxide 20 mmol/L (22-30); Chloride 104 mmol/L (98-107); Estimated CRCL calculation 193 ml/min; Estimated Glomerular Filt Rate > 60; Glucose 264 mg/dL (65-110); Magnesium 1.8 mg/dL (1.6-2.3); Potassium 4.3 mmol/L (3.4-5.0); Sodium 137 mmol/L (137-145)
[2021-04-11] MEDS: PANTOPRAZOLE SODIUM IV 40 MG VIAL IV PUSH (08:33)
[2021-04-11] MEDS: ENOXAPARIN 40 MG/0.4 ML SYRINGE SUB-Q (08:33)
[2021-04-11] MEDS: INSULIN GLARGINE (*BKC) 100 UNITS/ML 30 UNITS SUB-Q (08:33)
[2021-04-11 10:26] LABS: Glucose Point of Care 210 mg/dl (65-105)
[2021-04-11 12:25] LABS: Glucose Point of Care 213 mg/dl (65-105)
--- NOTE | 2021-04-11 13:56 | PM.DS ---
DS: Admitting Diagnosis Discharge Date 04/11/21 Admitting Diagnosis Nausea and vomiting DS: Discharge Diagnosis Discharge Diagnosis (1) Diabetic ketoacidosis associated with type 1 diabetes mellitus: Code(s): E10.10 - Type 1 diabetes mellitus with ketoacidosis without coma Status: Acute Assessment and Plan: With hyperglycemia (glucose 372), ketonemia (beta hydroxybutyrate 10.30), and metabolic acidosis with a pH of 7.155 and a pCO2 of 15.2 on ABG. Anion gap was unable to be calculated accurately but at least 28. He was admitted to the ICU treated with insulin drip and IV fluids per DKA protocol. Anion gap closed and transitioned to basal insulin and meal time bolus dosing. primary special educator consulted. His Anion Gap increased to 19 with serum bicarb 10. We continued IV fluid and and monitored glucose more closely; his anion gap closed to 13 with serum bicarb at 20. DKA resolved. (2) Type 1 diabetes mellitus: Code(s): E10.9 - Type 1 diabetes mellitus without complications Status: Acute Assessment and Plan: A1c 10.7. He has an insulin pump but was not charged so could not resume here. We resumed basal/bolus regiment. He was seen bu reel and rewinder operator and diabetic eduactor. 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 Gastric emptying scan showing gastric retention of 83% at 1HR., 77% at 2HR and 39% at 4HR. Dietitian was reconsulted to provide dietary instructions. He will need to take frequent small meals. Glucerna will be added. Will add Reglan. (4) Hyperkalemia: Code(s): E87.5 - Hyperkalemia Status: Acute Assessment and Plan: Potassium 6.3 on admission. Related to DKA and profound acidosis. EKG does show peaked T-waves. There have been no cardiac dysrhythmias noted but did have sinus tachycardia felt related to dehydration. Potassium has normalized with aggressive hydration and insulin drip. Tachycardia resolved with rehydration. Continue to monitor. (5) Dehydration: Code(s): E86.0 - Dehydration Status: Acute Assessment and Plan: He was aggressively hydrated per DKA protocol. Continue IV fluids as above. (6) Depression: Code(s): F32.A - Depression, unspecified Status: Acute Assessment and Plan: Normal mood and affect. Hold sertraline in while on Reglan. Continue to monitor. (7) Leukocytosis: Code(s): D72.829 - Elevated white blood cell count, unspecified Status: Acute Assessment and Plan: WBC 22K on admission. No evidence of acute infectious process so suspect related to a stress response. CXR clear. UA negative for evidence of infection. Blood cultures NGTD. Abx held. Repeat WBC normalized. DS: Summary Hospital Course Reason for hospitalization: 26yo male with DM I here for nausea and vomiting and found to have DKA. Please see H&P for details. Hospital Course: Please see above for details hospital course. Status at Discharge Cognitive/behavioral status at discharge: Stable Time Spent with Patient Time attestation: Total time spent providing and/or coordinating discharge services: 35 minutes Time spent: Greater than 30 minutes Exam Narrative: AF 97.7 125/66 941 8 100% ra Gen - NARD Chest - CTA bilaterally, nml RR CV - RRR S1/S2 Abd - Soft, NT/ND, Positive BS Ext - No pedal edema. Neuro - Alert and oriented. Nonfocal exam. Psych - Nml mood and affect DS: Data Data Completed and Pending Labs on day of discharge: Labs from last 24 hours 04/11/21 04/11/21 04/11/21 12:23 10:13 06:13 WBC RBC Hgb Hct MCV MCH MCHC RDW Plt Count MPV Sodium 137 Potassium 4.3 Chloride 104 Carbon Dioxide 20 L Anion Gap 13 BUN 9
== END 2021-04-11 15:25 | disposition home or self-care (01) | DRG 639 ==
LOC: ANHED 20:12 → ANHICU 04-09 11:04 → ANH3MEDSUR 04-11 14:07 → ANHICU 04-15 10:20
PROVIDERS: Internal Medicine; Physician Assistant; Admitting Provider Internal Medicine; Emergency Provider Emergency Medicine; PCP Physician Assistant; Visit Provider Internal Medicine
DX: E10.10 Type 1 diabetes mellitus with ketoacidosis without coma (principal); Z79.4 Long term (current) use of insulin; E87.5 Hyperkalemia; E86.0 Dehydration; F32.A Depression, unspecified; D72.829 Elevated white blood cell count, unspecified
CPT/HCPCS: 36415; 36600; 71045; 78264; 80048; 80053; 80069; 81001; 82010; 82805; 82948; 83036; 83735; 84100; 84439; 84443; 84480; 84484; 85025; 85027; 87040; 93005; 96360; 99291; A9270; A9541; C9113; J1650; J1815; J2405; J3480; J7030

== ENCOUNTER 2022-09-12 08:47 | Emergency (ER) | payer OTHER, SELFPAY ==
[2022-09-12 09:02] VITALS: BP 170/76; PULSE 105; RESP 16; TEMP 36.4; O2SAT 100
--- NOTE | 2022-09-12 10:01 | ED.HA ---
HPI - Headache General Chief Complaint: Headache Stated Complaint: migraine/nausea Time Seen by Provider: 09/12/22 09:55 Source: patient, RN notes reviewed and old records reviewed Mode of arrival: ambulatory Limitations: no limitations History of Present Illness HPI Narrative: 27-year-old male presents to [facility] with complaints of awakening this morning with headache associated with nausea and did have vomiting X1. He reports that he took Excedrin and pain has decreased some since taking medication. Patient reports pain went from 6/10 to 3/10 after medication taken and nausea has subsided at this time. Patient reports no feelings of dizziness, denies any photophobia or any visual disturbances. Patient is Type I diabetic on insulin pump. MD elicited complaint: headache Onset (ago): hour(s) (this morning upon awakening) Onset description: on awakening Pain scale (0-10): 3 Treatments prior to arrival: other (Excedrin) Related Data Home Medications Medication Instructions Recorded Confirmed insulin lispro 100 unit/mL See Rx Instructions .Route .COMPLEX 07/27/19 09/12/22 subcutaneous cartridge (Humalog U-100 Insulin) Allergies Allergy/AdvReac Type Severity Reaction Status Date / Time No Known Allergies Allergy Verified 07/12/20 20:17 Review of Systems Review of Systems: CONSTITUTIONAL: Denies fever, chills, or sweats. EYES: Denies visual changes, redness, or discharge. ENT: Denies rhinorrhea, congestion, sore throat, or otalgia. CARDIOVASCULAR: Denies chest pain, palpitations, or edema. RESPIRATORY: Denies cough or dyspnea. GASTROINTESTINAL: Denies abdominal pain,positive for nausea, vomiting X1 with headache, denies any diarrhea. GENITOURINARY: Denies dysuria or hematuria. SKIN: Denies rash or itching. MUSCULOSKELETAL: Denies back pain, joint pain, or myalgia. NEUROLOGIC: reports throbbing headache,no numbness, or weakness. PSYCHIATRIC: Denies anxiety or depression. All systems reviewed & are unremarkable except as noted in HPI and below PMFSH Past Medical History Medical History (Updated 09/14/22 @ 09:50 by Cadence Montero NP) Depression Type 1 diabetes mellitus Surgical History Surgical History No significant past surgical history Family History Family History Other Diabetes mellitus Hypertension Social History Social History (Updated 09/14/22 @ 09:57 by Cadence Montero NP) Social History: Surrogate decision maker: Ophelia Nash, mother. Code status: Full code. Smoking status: Never smoker Alcohol intake: never Alcohol use details: Drinks alcohol socially in moderation. Substance use: never Additional living arrangements comments: The patient lives in [place] with roommates. Additional occupation/education comments: Works for [employer] Gender identity (if verbalized by the patient): Male Spiritual care concerns: No Comments At time of signature, agree with nursing past medical, surgical, social and family history. There is no relevant family history pertinent to the presenting complaint Exam Narrative: GENERAL: Well-appearing, well-nourished, and in no acute distress. HEAD: Normocephalic, atraumatic. EYES: PERRLA and EOMI.no nystagmus or photophobia ENT: Nares clear, no rhinorrhea or epistaxis. Mucous membranes moist.TM's normal NECK: Supple.no lymphadenopathy CHEST: Clear to auscultation. No respiratory distress.SAO2 100% on room air HEART: Regular rate and rhythm. No murmur heard. Normal peripheral pulses. ABDOMEN: Soft, nontender, nondistended, normal active bowel sounds. EXTREMITIES: Normal range of motion. No edema. SKIN: Warm, dry, no rash. NEURO: No focal deficits. Alert and oriented x3.gait steady, able to tandem walk and walk on tip toes and heels, cranial nerves intact with no deficit. Course Course Emergency Course: Patient is aware of
== END 2022-09-12 10:17 | disposition home or self-care (01) ==
PROVIDERS: Emergency Provider Registered Nurse; PCP Physician Assistant
DX: R51.9 Headache, unspecified (principal); E10.9 Type 1 diabetes mellitus without complications; Z79.4 Long term (current) use of insulin
CPT/HCPCS: 99213; G0463